=== PATIENT | female | born 1985 | race Caucasian/White ===

== ENCOUNTER 2016-07-22 21:33 | Emergency (ER) | payer OTHER ==
[2016-07-22 21:47] VITALS: BMI 25.2
[2016-07-22 22:44] VITALS: BP 120/72; PULSE 85; TEMP 98.8
[2016-07-22 22:44] LABS: URINE APPEARANCE SLCLOUDY; URINE BILIRUBIN NEGATIVE (NEGATIVE); URINE COLOR LTYELLOW; URINE GLUCOSE (UA) NEGATIVE (NEGATIVE); URINE KETONE NEGATIVE (NEGATIVE); URINE NITRITE NEGATIVE (NEGATIVE); URINE PROTEIN NEGATIVE (NEGATIVE); URINE UROBILINOGEN NEGATIVE E.U./dl (0.2-1.0)
[2016-07-22 22:45] LABS: URINE BLOOD 3+ (NEGATIVE); URINE LEUK ESTERASE 3+ (NEGATIVE)
[2016-07-22 22:48] LABS: URINE BACTERIA RARE /hpf (NONE SEEN); URINE MUCUS RARE; URINE RBC 141 /hpf (0-3); URINE WBC 35 /hpf (3-5)
== END 2016-07-23 00:10 | disposition home or self-care (01) ==
LOC: JER 21:33
DX: O46.8X2 Other antepartum hemorrhage, second trimester (principal); Z3A.26 26 weeks gestation of pregnancy
CPT/HCPCS: 81003; 81015; 87086; 99281-25

== ENCOUNTER 2016-10-28 07:10 | Inpatient (IN) | payer OTHER ==
[2016-10-28] MEDS ORDERED: DEXTROSE 5%-LACTATED RINGERS 1,000 ML IV SCH (11:00)
[2016-10-28 11:21] VITALS: BMI 34.0
[2016-10-28] MEDS ORDERED: AMPICILLIN - 2 GM in SODIUM CHLORIDE 100 ML IVPB ONE (11:22)
--- NOTE | 2016-10-28 11:27 | HP ---
Admitting History and Physical - Admission Chief Complaint: labor pains History of Present Illness: 31 y/o at 38 plus weeks for labor pains at 3 cm, gbs pos History Source: Patient Limitations to Obtaining History: No Limitations - Past Medical History FINANCIAL PROFESSIONAL: No: Alzheimer's, CVA, Dementia, Migraine, Multiple Sclerosis, Peripheral Neuropathy, Parkinson's, Seizure, Syncope, TIA, Vertigo, Other Pulmonary: Yes: Asthma (last attack 05/2014) Gastrointestinal: Yes: Constipation Hepatobiliary: No: Cirrhosis, Cholelithiasis, Cholecystitis, Choledocholithiasis , Hepatitis A, Hepatitis B, Hepatitis C, Other Renal/: No: Renal Failure, Renal Inusuff, BPH, Cancer, Hematuria, Hemodialysis , Neurogenic Bladder, Renal Calculi, UTI, Other Reproductive: No: Ectopic , Endometriosis, Fibroids, PID, Polycystic Ovary Syndrome, Postmenopausal, Other ...: 10 ...Para: 7 Heme/Onc: Yes: Anemia (rx po iron & pnv) Infectious Disease: No: AIDS, C-Diff, Herpes Zoster, HIV, MRSA, STD's, Tuberculosis, VREF, Other Psych: No: Addictions, Anxiety, Bipolar, Depression, Panic, Psychosis, Schizophrenia, Other Musculoskeletal: No: Bursitis, Chronic low back pain, Hemiparesis, Hemiplegia, Osteoarthritis, Paraplegia, Other Rheumatology: No: Fibromyalgia, Gout, Lupus, Rheumatoid Arthritis, Sarcoidosis, Vasculitis, Other Dermatology: No: Basal Cell, Cellulitis, Eczema, Melanoma, Psoriasis, Squamous Cell, Other - Past Surgical History Past Surgical History: Yes: None - Advance Directives Advance Directives: No: Living Will, Health Care Proxy, DNR, Organ Donor, Tissue Donor, MOLST - Smoking History Smoking history: Never smoked Have you smoked in the past 12 months: No - Alcohol/Substance Use Hx Alcohol Use: No History of Substance Use: reports: None Home Medications - Allergies Allergies/Adverse Reactions: Allergies Allergy/AdvReac Type Severity Reaction Status Date / Time blueberry Allergy Intermediate Hives Verified 10/23/16 11:03 raspberry Allergy Intermediate Hives Verified 10/23/16 11:03 strawberry Allergy Intermediate Hives Verified 10/23/16 11:03 all berries Allergy Intermediate Hives Uncoded 10/23/16 11:03 - Home Medications Home Medications: Ambulatory Orders Vitamins (Sjr) - 1 tab PO DAILY #30 tablet 09/27/13 Ferrous Sulfate [Feosol] 325 mg PO BID #60 ud 05/05/15 Review of Systems - Review of Systems Constitutional: reports: No Symptoms Eyes: reports: No Symptoms HENT: reports: No Symptoms Neck: reports: No Symptoms Cardiovascular: reports: No Symptoms Respiratory: reports: No Symptoms Genitourinary: reports: No Symptoms Breasts: reports: No Symptoms Reported Musculoskeletal: reports: No Symptoms Neurological: reports: No Symptoms Hematology/Lymphatic: reports: No Symptoms Physical Examination Vital Signs: Vital Signs Temperature 98.4 F 10/28/16 10:00 Pulse Rate 76 10/28/16 10:00 Respiratory Rate 20 10/28/16 10:00 Blood Pressure 115/76 10/28/16 10:00 O2 Sat by Pulse Oximetry (%) Constitutional: Yes: Well Nourished Eyes: Yes: WNL HENT: Yes: WNL Neck: Yes: WNL Cardiovascular: Yes: WNL Gastrointestinal: Yes: WNL Assessment/Plan as above admit labs pitocin abx
[2016-10-28] MEDS ORDERED: ELECTROLYTE-148 SOLN 1,000 ML IV SCH (11:30)
[2016-10-28] MEDS ORDERED: OXYTOCIN 15 UNITS/ LR 250 ML 250 ML IVPB SCH (11:30)
[2016-10-28 12:25] LABS: BASOPHIL 0.6 % (0-2.0); EOSINOPHIL 1.2 % (0-4.5); MEAN CELL VOLUME 71.8 fl (80-96); MEAN PLT VOLUME 7.7 fl (7.5-11.1); NEUTROPHILS 77.4 % (42.8-82.8); PLATELET COUNT 196 K/MM3 (134-434); WHITE BLOOD COUNT 9.9 K/mm3 (4.0-10.0)
[2016-10-28 12:40] LABS: ANION GAP 10 (8-16); CALCIUM 8.4 mg/dL (8.5-10.1); CO2 22 mmol/L (21-32); CREATININE 0.4 mg/dL (0.55-1.02); GLUCOSE,RANDOM 82 mg/dL (74-106)
[2016-10-28 13:02] LABS: INR 0.94 (0.82-1.09); PROTHROMBIN TIME (PATIENT) 10.3 SEC (9.98-11.88)
--- NOTE | 2016-10-28 13:18 | PN ---
Ante-Partal Exam - Subjective Vital Signs: Vital Signs Temperature 98.9 F 10/28/16 12:00 Pulse Rate 78 10/28/16 12:00 Respiratory Rate 20 10/28/16 12:00 Blood Pressure 129/74 10/28/16 12:00 O2 Sat by Pulse Oximetry (%) Headache: No Visual changes: No Right upper quadrant pain: No - Contractions Contractions: Yes Regularity: Regular Intensity: Mild Monitor Mode: External - Exam during Labor Heart Rate: 150 Heart Rate Location: Midline Category: I Monitor Accelerations: Present Monitor Decelerations: None Exam: Vaginal Dilatation (cm): 4 Effacement (%): 70 Amniotic Membrane Status: Intact Nitrazine Test: Positive Amniotic Fluid: Clear Presentation: Vertex Station: -1 - Assessment/Plan Assessment/Plan: asa medina admit labs pitocin
[2016-10-28] MEDS ORDERED: BUTORPHANOL TARTRATE 1 MG/ML VIAL IVPUSH PRN (14:15)
[2016-10-28] MEDS ORDERED: PROMETHAZINE HCL 25 MG/1 ML VIAL IVPB PRN (14:17)
[2016-10-28] MEDS ORDERED: AMPICILLIN - 1 GM in SODIUM CHLORIDE 100 ML IVPB SCH (15:50)
--- NOTE | 2016-10-28 15:59 | PN ---
Ante-Partal Exam - Subjective Vital Signs: Vital Signs Temperature 98.9 F 10/28/16 12:00 Pulse Rate 78 10/28/16 15:00 Respiratory Rate 20 10/28/16 15:00 Blood Pressure 132/74 10/28/16 15:00 O2 Sat by Pulse Oximetry (%) Bleeding: No Headache: No Visual changes: No Right upper quadrant pain: No - Contractions Contractions: Yes Regularity: Regular Intensity: Mild Monitor Mode: External - Exam during Labor Heart Rate: 150 Variability: Moderate Heart Rate Location: Midline Category: I Monitor Accelerations: Present Monitor Decelerations: Variable Exam: Vaginal Dilatation (cm): 7 Effacement (%): 90 Amniotic Membrane Status: Ruptured Nitrazine Test: Positive Amniotic Fluid: Clear Presentation: Vertex - Assessment/Plan Assessment/Plan: as carlie pt has had occasional variables int electrode placed will continue care
[2016-10-28] MEDS ORDERED: CITRIC ACID/SODIUM CITRATE 30 ML UNIT-DOSE CUP PO ONE ×2 (16:30→18:15)
[2016-10-28] MEDS ORDERED: morphine SULFATE/Preservative Free 0.5 MG/ML (1cc Syringe) SPIN ONE (16:40)
[2016-10-28] MEDS: OXYTOCIN 20 UNITS in 0.9% NS 1,000 ML IV SCH ×2 (16:50→18:30)
[2016-10-28] MEDS ORDERED: ONDANSETRON 4 MG/2 ML VIAL IVPB PRN (16:53)
[2016-10-28] MEDS ORDERED: IBUPROFEN 600 MG TABLET (FP) PO PRN ×2 (16:53→17:13)
[2016-10-28 17:07] LABS: ARTERIAL BLD GAS O2 SATURATION 29.1 % (90-98.9); ARTERIAL BLOOD GAS BASE EXCESS -1.7 meq/l (-2-2); ARTERIAL BLOOD GAS HCO3 25.5 meq/L (22-26); ARTERIAL BLOOD GAS PO2 17.9 mmHg (80-100)
[2016-10-28 17:08] LABS: ART PUNCT SITE OTHER; LPM/O2% 21%; PT. ON O2? NO; TYPE OF O2 R/A
[2016-10-28 17:11] LABS: ARTERIAL BLD GAS O2 SATURATION 74.5 % (90-98.9); ARTERIAL BLOOD GAS HCO3 21.4 meq/L (22-26); ARTERIAL BLOOD GAS PO2 33.6 mmHg (80-100); ARTERIAL BLOOD GAS pH 7.37 (7.35-7.45)
[2016-10-28 17:12] LABS: ART PUNCT SITE OTHER; PT. ON O2? NO
[2016-10-28 17:13] LABS: LPM/O2% 21%; TYPE OF O2 R/A
[2016-10-28] MEDS ORDERED: METHYLERGONOVINE MALEATE 0.2 MG/1 ML AMP IM PRN (17:13)
[2016-10-28] MEDS ORDERED: SENNOSIDES/DOCUSATE COMBO (SENNA PLUS) TABLET (UD) PO PRN (17:13)
--- NOTE | 2016-10-28 17:16 | PN ---
Delivery - Delivery Section: Primary Type of Anesthesia: Spinal (pt had bradycardia no responsive to resusitative maneuvers) EBL (cc): 500 Delivery, Single - Feeding Plan Initial Plan: Elected not to breastfeed exclusively throughout hospitalization
[2016-10-28] MEDS: IBUPROFEN 800 MG/8 ML IJ IVPB PRN (19:53)
--- NOTE | 2016-10-29 01:02 | PN ---
Post Progress Note Post Day: 1 Type of Delivery: Primary C/S Vital Signs: Vital Signs Temperature 99.4 F 10/28/16 22:00 Pulse Rate 72 10/28/16 22:00 Respiratory Rate 18 10/29/16 00:00 Blood Pressure 114/51 10/28/16 22:00 O2 Sat by Pulse Oximetry (%) 99 10/28/16 19:30 Uterus: Yes: Fundus Firm Abdomen/GI: Yes: Abdomen soft Lochia: Yes: Rubra Lochia, amount: Small Extremities: Yes: Calves non-tender Perineum: Yes: Intact Activity: Ambulating - Labs Labs: CBC WBC 9.9 K/mm3 (4.0-10.0) 10/28/16 11:55 RBC 4.41 M/mm3 (3.60-5.2) D 10/28/16 11:55 Hgb 10.1 GM/dL (10.7-15.3) L D 10/28/16 11:55 Hct 31.7 % (32.4-45.2) L D 10/28/16 11:55 MCV 71.8 fl (80-96) L 10/28/16 11:55 MCH 23.0 pg (25.7-33.7) L 10/28/16 11:55 MCHC 32.0 g/dl (32.0-36.0) 10/28/16 11:55 RDW 17.0 % (11.6-15.6) H 10/28/16 11:55 Plt Count 196 K/MM3 (134-434) 10/28/16 11:55 MPV 7.7 fl (7.5-11.1) 10/28/16 11:55 Neutrophils % 77.4 % (42.8-82.8) D 10/28/16 11:55 Lymphocytes % 15.4 % (8-40) D 10/28/16 11:55 Monocytes % 5.4 % (3.8-10.2) 10/28/16 11:55 Eosinophils % 1.2 % (0-4.5) 10/28/16 11:55 Basophils % 0.6 % (0-2.0) 10/28/16 11:55 Assessment/Plan as above continue care check labs oob pain control
[2016-10-29] MEDS: OXYTOCIN 20 UNITS in 0.9% NS 1,000 ML IV SCH ×2 (01:40→09:31)
[2016-10-29 08:53] LABS: BASOPHIL 0.5 % (0-2.0); EOSINOPHIL 0.3 % (0-4.5); MCH 22.4 pg (25.7-33.7); MCHC 31.2 g/dl (32.0-36.0); MEAN CELL VOLUME 71.9 fl (80-96); MEAN PLT VOLUME 7.7 fl (7.5-11.1); NEUTROPHILS 84.9 % (42.8-82.8); PLATELET COUNT 191 K/MM3 (134-434); RDW 17.2 % (11.6-15.6)
[2016-10-29] MEDS: IBUPROFEN 800 MG/8 ML IJ IVPB PRN (09:35)
--- NOTE | 2016-10-29 09:45 | PN ---
Progress Note (short form) - Note Progress Note: Anesthesiology post-op POD#1 s/p C/S under spinal. Pt. feels well, pain under control, able to move legs, denies residual paresthesia or h/a. VSS.
[2016-10-29] MEDS ORDERED: BISACODYL 10 MG SUPP.RECT RC PRN (17:13)
[2016-10-29] MEDS: ACETAMINOPHEN 325 MG TABLET (FP) PO PRN (19:52)
[2016-10-29] MEDS: SIMETHICONE 80 MG TAB.CHEW (FP) PO PRN (19:53)
--- NOTE | 2016-10-30 07:04 | PN ---
Post Progress Note Post Day: 2 Type of Delivery: Primary C/S Vital Signs: Vital Signs Temperature 99.0 F 10/29/16 21:41 Pulse Rate 96 H 10/29/16 21:41 Respiratory Rate 18 10/29/16 21:41 Blood Pressure 128/79 10/29/16 21:41 O2 Sat by Pulse Oximetry (%) 99 10/28/16 19:30 Breast Exam: Yes: Soft Uterus: Yes: Fundus Firm Incision: Yes: Dressing dry and intact Abdomen/GI: Yes: Abdomen soft Lochia: Yes: Rubra Lochia, amount: Small Extremities: Yes: Calves non-tender Perineum: Yes: Intact Activity: Ambulating - Labs Labs: CBC WBC 14.0 K/mm3 (4.0-10.0) H D 10/29/16 08:00 RBC 3.58 M/mm3 (3.60-5.2) L 10/29/16 08:00 Hgb 8.0 GM/dL (10.7-15.3) L D 10/29/16 08:00 Hct 25.7 % (32.4-45.2) L D 10/29/16 08:00 MCV 71.9 fl (80-96) L 10/29/16 08:00 MCH 22.4 pg (25.7-33.7) L 10/29/16 08:00 MCHC 31.2 g/dl (32.0-36.0) L 10/29/16 08:00 RDW 17.2 % (11.6-15.6) H 10/29/16 08:00 Plt Count 191 K/MM3 (134-434) 10/29/16 08:00 MPV 7.7 fl (7.5-11.1) 10/29/16 08:00 Neutrophils % 84.9 % (42.8-82.8) H 10/29/16 08:00 Lymphocytes % 7.6 % (8-40) L D 10/29/16 08:00 Monocytes % 6.7 % (3.8-10.2) 10/29/16 08:00 Eosinophils % 0.3 % (0-4.5) 10/29/16 08:00 Basophils % 0.5 % (0-2.0) 10/29/16 08:00 Assessment/Plan doing well remove dressing reg diet oob
[2016-10-30] MEDS: ACETAMINOPHEN 325 MG TABLET (FP) PO PRN ×3 (07:51→20:04)
[2016-10-30] MEDS: oxyCODONE HCL 5 MG TABLET PO PRN ×3 (07:51→20:02)
[2016-10-30] MEDS: SIMETHICONE 80 MG TAB.CHEW (FP) PO PRN ×3 (07:52→20:02)
[2016-10-31] MEDS: ACETAMINOPHEN 325 MG TABLET (FP) PO PRN (02:11)
[2016-10-31] MEDS: SIMETHICONE 80 MG TAB.CHEW (FP) PO PRN (02:11)
[2016-10-31] MEDS: oxyCODONE HCL 5 MG TABLET PO PRN (02:11)
[2016-10-31 09:01] LABS: BASOPHIL 0.4 % (0-2.0); EOSINOPHIL 2.2 % (0-4.5); MCHC 31.9 g/dl (32.0-36.0); MEAN CELL VOLUME 72.2 fl (80-96); MEAN PLT VOLUME 7.1 fl (7.5-11.1); NEUTROPHILS 76.2 % (42.8-82.8); PLATELET COUNT 244 K/MM3 (134-434); RDW 17.2 % (11.6-15.6); WHITE BLOOD COUNT 10.1 K/mm3 (4.0-10.0)
--- NOTE | 2016-10-31 09:42 | PN ---
Progress Note (short form) - Note Progress Note: pod 3 doing well, no c/o, no dizziness , no excess vaginal bleeding Current Medications Generic Name Dose Route Start Last Admin Trade Name Xiomara PRN Reason Stop Dose Admin Acetaminophen 650 mg 10/28/16 16:53 10/31/16 02:11 Tylenol - PO 650 mg Q4H PRN Administration FEVER OR PAIN Bisacodyl 10 mg 10/29/16 17:13 Dulcolax Suppository - RC PRN PRN CONSTIPATION Ibuprofen 600 mg 10/28/16 17:13 10/29/16 19:51 Motrin - PO 600 mg Q4H PRN Administration PAIN Ibuprofen 800 mg 10/28/16 17:13 10/29/16 09:35 Caldolor Injection - IVPB 800 mg Q8H PRN Administration PAIN OR FEVER Methylergonovine Maleate 0.2 mg 10/28/16 17:13 Methergine Injection - IM Q4H PRN Excessive Bleeding (L&D) Oxycodone HCl 10 mg 10/28/16 17:13 10/31/16 02:11 Roxicodone - PO 10 mg Q4H PRN Administration PAIN LEVEL 6-10 Senna/Docusate Sodium 2 tablet 10/28/16 17:13 10/30/16 20:05 Pericolace - PO 2 tablet HS PRN Administration CONSTIPATION Simethicone 80 mg 10/28/16 17:13 10/31/16 02:11 Mylicon - PO 80 mg Q4H PRN Administration GAS CBC, BMP 10/31/16 08:45 10/28/16 11:55 Last Vital Signs Temp Pulse Resp BP Pulse Ox 98.1 F 76 18 116/72 99 10/31/16 02:00 10/30/16 22:00 10/30/16 22:00 10/30/16 22:00 10/28/16 19:30 abdomen soft, no distension, no cva incision dry, clean no calf tenderness patient requesting to go home today, advised iron, vit . if heavy bleeding, dizziness to ER
[2016-10-31 11:23] VITALS: BP 128/64; PULSE 78; TEMP 98.9
--- NOTE | 2016-11-01 14:44 | PATH ---
Surgical Pathology Report Patient Name: HERBERT NELSON [facility]. Rec. #: [id number] /Age/Gender: 1985 (Age: 31) / F Account: [id number] Location: [facility] OBS/MANAGER BENEFIT Taken: 10/28/2016 Received: 10/30/2016 Reported: 11/01/2016 Physicians: Og Bush M.D. Specimen(s) Received PLACENTA Clinical History Primary c/section Final Diagnosis PLACENTA, DELIVERY: FOCALLY DISRUPTED THIRD TRIMESTER PLACENTA WITH FOCAL MILD INCREASE IN PERIVILLOUS AND PRECHORIONIC FIBRIN DEPOSITION, THREE VESSEL UMBILICAL CORD, AND PLACENTAL MEMBRANES WITH FOCAL AMNION HYPERPLASIA. Electronically Signed Joe Hernández M.D. Gross Description The specimen is received fresh, labeled "placenta" and is a 550 gram, 17.0 x 15.5 x 3.3 cm placenta with attached membranes and umbilical cord. The attached membranes are pacheco, thickened and insert marginally. The umbilical cord measures 20 cm in length and averages 1.3 cm in diameter. The cord inserts eccentrically, 3.5 cm to the nearest margin. No true knots or strictures are identified. Cut surface of the umbilical cord reveals 3 vessels. The surface is shell-blue with fibrin deposition and appropriate caliber vessels. The maternal surface is red-brown with focal defects. Sectioning reveals red-brown, spongy parenchyma. No focal lesions are identified. Flotation Tender sections are submitted in three cassettes as follows: 1- membrane rolls and umbilical cord; 2-3- full thickness sections of placenta. 10/31/201610/31/2016
== END 2016-10-31 10:30 | disposition home or self-care (01) | DRG 540 ==
LOC: JDEL 07:10 → JLDR 10:20 → J3W 21:20
PROVIDERS: ADMIT Obstetrics & Gynecology; ATTEND Obstetrics & Gynecology
PROC: 10D00Z1 Extraction of Products of Conception, Low, Open Approach (ICD-10-PCS; principal; 2016-10-28)
DX: O76 Abnormality in fetal heart rate and rhythm complicating labor and delivery (principal); Z3A.38 38 weeks gestation of pregnancy; Z37.0 Single live birth
CPT/HCPCS: 36415; 36600; 80048; 82803; 85025; 85610; 85730; 86593; 86850; 86900; 86901; 88307-TC